=== PATIENT | female | born 1985 | race Caucasian/White ===

== ENCOUNTER 2019-10-15 17:37 | Emergency (ER) | payer OTHER ==
--- NOTE | 2019-10-15 18:15 | EDM.PDOC ---
ED HPI GENERAL MEDICAL PROBLEM - General Chief Complaint: Skin Complaint Stated Complaint: BUG BITES LEGS AND ANKLES Time Seen by Provider: 10/15/19 18:06 Source of Information: Reports: Patient History Limitations: Reports: No Limitations - History of Present Illness INITIAL COMMENTS - FREE TEXT/NARRATIVE: Patient presents for evaluation of multiple areas of itching on the legs which have developed over the last 4 to 5 days. She is not sure if she was bitten by some type of bug or if this could be poison monica. They have been in areas where poison monica exists. She has been using Domeboro solution to the irritated areas but it still is weeping and itching. Because it was not improving, she came in today. She is also 12 weeks . Onset: Gradual Duration: Day(s): (4) Location: Reports: Lower Extremity, Left, Lower Extremity, Right Quality: Reports: Other (Itching) Severity: Mild Improves with: Reports: None Worsens with: Reports: Movement Associated Symptoms: Reports: No Other Symptoms - Related Data Allergies Allergy/AdvReac Type Severity Reaction Status Date / Time Sulfa (Sulfonamide Allergy Hives Verified 10/15/19 18:00 Antibiotics) Home Meds: Home Meds Vits #93/Iron Fum/FA [ Formula Tablet] 1 tab PO DAILY 10/15/19 [History] Past Medical History - Past Surgical History HEENT Surgical History: Reports: Adenoidectomy, Tonsillectomy Social & Family History - Tobacco Use Smoking Status *Q: Never Smoker ED ROS GENERAL - Review of Systems Review Of Systems: Comprehensive ROS is negative, except as noted in HPI. ED EXAM, SKIN/RASH Exam: See Below Text/Narrative:: This is an adult female in no distress in the bed of room 14. Exam Limited By: No Limitations General Appearance: Alert, No Apparent Distress Skin: Excoriations, Other (There are numerous papulovesicular lesions on both legs. There is serous fluid coming from a confluent patch of irritation just inferior to the medial malleolus. There are excoriations.) Location, Skin: Lower Extremity, Right, Lower Extremity, Left Associated features: Crusting, Weeping Course - Vital Signs Last Recorded V/S: Last Vital Signs Temp 36.6 C 10/15/19 18:06 Pulse 83 10/15/19 18:06 Resp 13 10/15/19 18:06 BP 118/55 L 10/15/19 18:06 Pulse Ox 96 10/15/19 18:06 - Re-Assessments/Exams Free Text/Narrative Re-Assessment/Exam: 10/15/19 18:44 I will have the patient use triamcinolone 0.1% cream twice daily over the next week. Benadryl 25 mg up to 3 times daily will also help the itching. She can continue to use the Domeboro solution soaks for additional relief. Prednisone was not given based on the amount of affected tissue and her current status. If not improved in the next 4 or 5 days, she should contact her primary care and/or obstetric provider. Departure - Departure Time of Disposition: 18:26 Disposition: Home, Self-Care 01 Condition: Good Clinical Impression: Contact dermatitis due to poison monica - Discharge Information Referrals: PCP,None [Primary Care Provider] - Forms: ED Department Discharge Additional Instructions: Wash clothing and any other fabric material that has been in contact with you over this past week. Be sure to wash all of your foot wear and shoelaces if appropriate. Apply triamcinolone cream twice a day to the itchy areas. Benadryl 25 mg up to 3 times a day will help the itching. Use of Domeboro solution is fine. Try to avoid scratching the itchy areas to the extent possible. If symptoms are not improving after 3 or 4 days, you may need a course of prednisone tablets but you should contact your OB doctor to find out if it will be all right to take those. Sepsis Event Note (ED) - Evaluation Sepsis Screening Result: No Definite Risk - Focused Exam Vital Signs: Vital Signs Temp Pulse Resp BP Pulse Ox 10/15/19 18:06 36.6 C 83 13 118/55 L 96 10/15/19 17:52 36.6 C 83 13 118/55 L 96
== END 2019-10-15 18:37 | disposition home or self-care (01) ==
LOC: JP.ED 17:37
DX: L23.7 Allergic contact dermatitis due to plants, except food (principal); Z88.2 Allergy status to sulfonamides; Z90.49 Acquired absence of other specified parts of digestive tract; Z98.890 Other specified postprocedural states
CPT/HCPCS: 99282; 99283